=== PATIENT | female | born 1965 | race Two or more races ===

== ENCOUNTER 2018-03-29 09:52 | Emergency (ER) | payer BC ==
[2018-03-29] MEDS ORDERED: ONDANSETRON 4 MG TAB.RAPDIS PO ONE ×2 (10:09→14:58)
--- NOTE | 2018-03-29 10:11 | ER Document Report ---
ED Medical Screen (RME) - General Chief Complaint: Chest Pain > 30 Stated Complaint: CHEST PAIN Time Seen by Provider: 03/29/18 10:09 Notes: RAPID MEDICAL EVALUATION DISCLOSURE I have seen this patient as part of a Rapid Medical Evaluation and, if applicable, placed any initially appropriate orders. The patient will be seen and fully evaluated, including a full history and physical exam, by a provider ( in Main ED or Fast Track) when a room becomes available. 52-year-old female here with complaints of headaches body aches nausea and loss of appetite ongoing for the past week. She then started to develop some midsternal nonradiating intermittent chest pain and shortness of breath worse with exertion. She thought it may have been heartburn so she took a Pepcid with not much relief. She has noticed that the symptoms are similar to when she had myocarditis in the last 1-2 years so she became worried and came here. She denies any history of cardiac stents or VT. She did have an echocardiogram several weeks ago for follow-up regarding her myocarditis. EXAM CTAB RRR TRAVEL OUTSIDE OF THE [place] IN LAST 30 DAYS: No - Related Data Allergies/Adverse Reactions: No Known Allergies Allergy (Verified 03/29/18 09:54) Physical Exam - Vital signs Vitals: Temp Pulse Resp BP Pulse Ox 98.4 F 79 16 112/65 99 03/29/18 09:58 03/29/18 09:58 03/29/18 09:58 03/29/18 09:58 03/29/18 09:58 Course - Vital Signs Vital signs: Temp Pulse Resp BP Pulse Ox 98.4 F 79 16 112/65 99 03/29/18 09:58 03/29/18 09:58 03/29/18 09:58 03/29/18 09:58 03/29/18 09:58
[2018-03-29 10:39] LABS: ABSOLUTE EOSINOPHILS # (AUTO) 0.1 10^3/uL (0.0-0.6); ABSOLUTE LYMPHOCYTES (AUTO) 1.3 10^3/uL (0.5-4.7); ABSOLUTE MONOCYTES (AUTO) 0.7 10^3/uL (0.1-1.4); ABSOLUTE NEUT (AUTO) 8.6 10^3/uL (1.7-8.2); BASOPHILS % (AUTO) 0.3 % (0-2); EOSINOPHILS % (AUTO) 1.1 % (0-6); HEMATOCRIT 42.6 % (36.0-47.0); HEMOGLOBIN 14.2 g/dL (12.0-15.5); MEAN CORPUSCULAR HEMOGLOBIN 29.3 pg (27.0-33.4); MEAN CORPUSCULAR HGB CONC 33.3 g/dL (32.0-36.0); MEAN CORPUSCULAR VOLUME 88 fl (80-97); MONOCYTES % (AUTO) 6.6 % (3-13); PLATELET COUNT 209 10^3/uL (150-450); RED BLOOD COUNT 4.85 10^6/uL (3.72-5.28); RED CELL DISTRIBUTION WIDTH 13.4 % (11.5-14.0); TOTAL CELLS COUNTED % (AUTO) 100 %; WHITE BLOOD COUNT 10.8 10^3/uL (4.0-10.5)
[2018-03-29 10:59] LABS: ALANINE AMINOTRANSFERASE 25 U/L (9-52); ALBUMIN 4.2 g/dL (3.5-5.0); ALKALINE PHOSPHATASE 59 U/L (38-126); ANION GAP 10 (5-19); ASPARTATE AMINO TRANSFERASE 20 U/L (14-36); BILIRUBIN,DIRECT 0.1 mg/dL (0.0-0.4); BILIRUBIN,TOTAL 0.5 mg/dL (0.2-1.3); BLOOD UREA NITROGEN 16 mg/dL (7-20); CALCIUM 9.1 mg/dL (8.4-10.2); CARBON DIOXIDE 28 mmol/L (22-30); CHLORIDE 107 mmol/L (98-107); GLUCOSE 83 mg/dL (75-110); LIPASE 62.3 U/L (23-300); POTASSIUM 4.7 mmol/L (3.6-5.0); SODIUM 144.9 mmol/L (137-145); TOTAL PROTEIN 6.7 g/dL (6.3-8.2)
--- NOTE | 2018-03-29 11:25 | RADIOLOGY REPORT (SQ) ---
EXAM DESCRIPTION: CHEST 2 VIEWS COMPLETED DATE/TIME: 03/29/2018 11:17 am REASON FOR STUDY: CP SOB COMPARISON: None. EXAM PARAMETERS: NUMBER OF VIEWS: two views TECHNIQUE: Digital Frontal and Lateral radiographic views of the chest acquired. RADIATION DOSE: NA LIMITATIONS: none FINDINGS: LUNGS AND PLEURA: No opacities, masses or pneumothorax. No pleural effusion. MEDIASTINUM AND HILAR STRUCTURES: No masses or contour abnormalities. HEART AND VASCULAR STRUCTURES: Heart normal size. No evidence for failure. BONES: No acute findings. HARDWARE: None in the chest. OTHER: No other significant finding. IMPRESSION: NO ACUTE RADIOGRAPHIC FINDING IN THE CHEST. TECHNICAL DOCUMENTATION: JOB ID: [id number] [employer]- All Rights Reserved Reading location - IP/workstation name: [facility]
--- NOTE | 2018-03-29 12:32 | ER Document Report ---
ED General - General Mode of Arrival: Ambulatory Information source: Patient TRAVEL OUTSIDE OF THE [place] IN LAST 30 DAYS: No <CHANCE THOMAS - Last Filed: 03/29/18 16:18> <MERLEROSAMARIAHANNA - Last Filed: 03/29/18 17:59> - General Chief Complaint: Chest Pain > 30 Stated Complaint: CHEST PAIN Time Seen by Provider: 03/29/18 10:09 Notes: Patient is a 52 year old female with a history of pericarditis presents to the emergency department complaining of multiple symptoms including headache, body aches, nausea, decreased appetite onset 1 week ago and chest pain onset yesterday. Patient states she has been feeling bad for the last week although she developed chest pain yesterday. She states the chest pain has progressively worsened and describes it as dull as well as waxing and waning. She states she thought she was having heart burn so she took Pepcid although it provided no relief. She states she was diagnosed with pericarditis approximately 1.5 years ago and was concerned this could be the cause of her chest pain. Patient denies a cough. Of significance, patient states she had an echocardiogram performed 3 weeks ago which showed to be normal. (CHANCE THOMAS) - Related Data Allergies/Adverse Reactions: No Known Allergies Allergy (Verified 03/29/18 10:11) Past Medical History - General Information source: Patient - Social History Smoking Status: Never Smoker Chew tobacco use (# tins/day): No Frequency of alcohol use: None Drug Abuse: None Family History: Reviewed & Not Pertinent Patient has suicidal ideation: No Patient has homicidal ideation: No - Past Medical History Cardiac Medical History: Reports: Other - Pericarditis Past Surgical History: Reports: Hx Section - x1, Hx Hysterectomy, Hx Orthopedic Surgery - Lt rotator cuff <CHANCE THOMAS - Last Filed: 03/29/18 16:18> Review of Systems - Review of Systems Constitutional: No symptoms reported EENT: No symptoms reported Cardiovascular: No symptoms reported Respiratory: No symptoms reported Gastrointestinal: See HPI, Abdominal pain <CHANCE THOMAS - Last Filed: 03/29/18 16:18> - Review of Systems Constitutional: Malaise, Recent illness. denies: Weight gain, Weight loss EENT: No symptoms reported, Nose congestion. denies: Nose discharge, Sinus pressure Cardiovascular: No symptoms reported, Chest pain. denies: Orthopnea, Dyspnea -: Yes All other systems reviewed and negative <HANNA ROSALES - Last Filed: 03/29/18 17:59> Physical Exam <CHANCE THOMAS - Last Filed: 03/29/18 16:18> <HANNA ROSALES - Last Filed: 03/29/18 17:59> - Vital signs Vitals: Temp Pulse Resp BP Pulse Ox 98.4 F 79 16 112/65 99 03/29/18 09:58 03/29/18 09:58 03/29/18 09:58 03/29/18 09:58 03/29/18 09:58 - Notes Notes: GENERAL: Alert, interacts well. No acute distress. HEAD: Normocephalic, atraumatic. EYES: Pupils equal, round, and reactive to light. Extraocular movements intact. ENT: Oral mucosa moist, tongue midline. NECK: Full range of motion. Supple. Trachea midline. LUNGS: Clear to auscultation bilaterally, no wheezes, rales, or rhonchi. No respiratory distress. HEART: Regular rate and rhythm. No murmurs, gallops, or rubs. Sternum sore to palpation. ABDOMEN: Soft, non-tender. Non-distended. Bowel sounds present in all 4 quadrants. EXTREMITIES: Moves all 4 extremities spontaneously. No edema, radial and dorsalis pedis pulses 2/4 bilaterally. No cyanosis. NEUROLOGICAL: Alert and oriented x3. Normal speech. PSYCH: Normal affect, normal mood. SKIN: Warm, dry, normal turgor. No rashes or lesions noted. (CHANCE THOMAS) Course - Laboratory Result Diagrams: 03/29/18 10:24 03/29/18 10:24 <CHANCE THOMAS - Last Filed: 03/29/18 16:18> - Laboratory Result Diagrams: 03/29/18 10:24 03/29/18 10:24 <HANNA ROSALES - Last Filed: 03/29/18 17:59> - Re-evaluation Re-evalutation: 03/29/18 15:46 CBC shows mild leukocytosis of 10.8, CMP grossly unremarkable, cardiac enzymes negative 2, ESR of 9 and CRP of less than 5 argue against myocarditis or pericarditis. EKG is not consistent with pericarditis, chest x-ray shows no acute process. Patient is now wondering whether or not this could all be viral, she is describing a headache, rhinorrhea, some pain in her chest that she feels like might be heartburn. Also describes some nausea. This is more suspicious for a viral syndrome. Patient will be given migraine cocktail to help with her headache as well as a GI cocktail in case this is heartburn. Patient is agreeable to taking an lcyw-vea-sunbtrh decongestant and antiallergy medication such as Zyrtec or Claritin. Will be given Carafate to take at home as well. Discharged home. (HANNA ROSALES) - Vital Signs Vital signs: Temp Pulse Resp BP Pulse Ox 98.4 F 66 16 105/56 L 99 03/29/18 16:19 03/29/18 16:19 03/29/18 16:19 03/29/18 16:19 03/29/18 16:19 - Laboratory Laboratory results interpreted by me: 03/29/18 10:24 WBC 10.8 H Seg Neutrophils % 80.0 H Lymphocytes % 12.0 L Absolute Neutrophils 8.6 H - EKG Interpretation by Me Additional EKG results interpreted by me: 03/29/18 15:48 EKG shows sinus rhythm at a rate of 67, normal axis, normal intervals, no ST segment elevations or depressions, no T-wave inversions per my interpretation. ( HANNA ROSALES) Discharge <CHANCE THOMAS - Last Filed: 03/29/18 16:18> <HANNA ROSALES - Last Filed: 03/29/18 17:59> - Discharge Clinical Impression: Chest pain of uncertain etiology Headache Qualifiers: Headache type: unspecified Headache chronicity pattern: acute headache Intractability: intractable Qualified Code(s): R51 - Headache Condition: Stable Disposition: HOME, SELF-CARE Additional Instructions: Today we did not find any sign of heart attack, pneumonia, myocarditis or pericarditis. It is possible that your symptoms are coming from a viral infection or seasonal allergies that are causing a headache and worsening your heartburn. Please take a daily antiallergy medication such as Zyrtec or Claritin. Please continue taking Pepcid or Zantac or your favorite antacid over -the-counter. You may also take the Carafate that I prescribed if you are having increasing irritation from your stomach. If your chest pain continues to worsen or you develop any new or concerning symptoms please return to the emergency department. Prescriptions: Sucralfate [Carafate Susp 1 Gm/10 Ml Udcup] 1 gm PO Q6HP PRN #[id number] PRN Reason: Forms: Return to Work Referrals: INDIRA SARAVIA MD [Primary Care Provider] - Follow up as needed Scribe Attestation: 03/29/18 17:59 I personally performed the services described in the documentation, reviewed and edited the documentation which was dictated to the scribe in my presence, and it accurately records my words and actions. (HANNA ROSALES) Scribe Documentation - Scribe Written by Fritze:: Yi Velázquez, 03/29/2018 12:56 acting as scribe for :: Johanne <CHANCE THOMAS - Last Filed: 03/29/18 16:18>
[2018-03-29] MEDS ORDERED: KETOROLAC TROMETHAMINE INJ/PF 30 MG/1 ML SDV IV ONE (13:59)
[2018-03-29] MEDS ORDERED: KETOROLAC TROMETHAMINE 60 MG/2 ML SDV IM ONE (14:19)
[2018-03-29] MEDS ORDERED: DIPHENHYDRAMINE HCL 50 MG/ML VIAL IM ONE (15:14)
[2018-03-29] MEDS ORDERED: PROCHLORPERAZINE EDISYLATE INJ 10 MG/2 ML VIAL IM ONE (15:14)
[2018-03-29] MEDS ORDERED: METOCLOPRAMIDE HCL ORAL SOLN 10 MG/10 ML UDCUP PO ONE (15:24)
[2018-03-29] MEDS ORDERED: LIDOCAINE 2% VISCOUS SOLN 20 ML UDCUP PO ONE (15:24)
[2018-03-29] MEDS ORDERED: MAG HYDROX/AL HYDROX/SIMETH SUSP 30 ML UDCUP PO ONE (15:24)
[2018-03-29 16:24] VITALS: BP 105/56
--- NOTE | 2018-03-29 19:19 | EKG REPORT ---
SEVERITY:- BORDERLINE ECG - SINUS RHYTHM BORDERLINE R WAVE PROGRESSION, ANTERIOR LEADS : Confirmed by: Tristen Torrez 29-Mar-2018 19:19:12
== END 2018-03-29 16:22 | disposition home or self-care (01) ==
LOC: ER 09:52
DX: R07.9 Chest pain, unspecified (principal); R51 Headache; R11.0 Nausea; R63.0 Anorexia; R53.81 Other malaise; D72.829 Elevated white blood cell count, unspecified; J34.89 Other specified disorders of nose and nasal sinuses; Z86.79 Personal history of other diseases of the circulatory system
CPT/HCPCS: 93005; 99285; 96372; 36415; 83690; 85025; 85652; 86140; 80053; 84484; 71046; 93010; J1200; J1885; S0119; J3490; J0780